=== PATIENT | male | born 1955 | race Caucasian/White ===

== ENCOUNTER 2019-07-29 07:52 | Inpatient (IN) | payer OTHER ==
[~2019-07-29 07:52] MED LIST: Buffered Lidocaine 1% SYRIN* 1 ML/SYRINGE INTRADERM ONE; Famotidine IV* 10 MG/ML 2 ML (20 mg) IV ONE; Lactated Ringers 1000 ML Bag* 1,000 ML IV SCH
--- OUTSIDE RECORDS SUMMARY | 2019-07-29 07:56 | XMS REPORT | Continuity of Care Document ---
:1955 External Reference #:[id number] Author Name Bird Caba M.D. (transmitted by agent of provider Judy Greenfield) Address [address] [place] [address] Care Team Providers Name Role Phone Fouzia Anderson MD - Internal Care Team Information Agronomy Specialist Medicine Problems Active Problems Provider Date Calcific tendinitis of right shoulder Bird Caba M.D. Onset: 11/27/2018 Rotator cuff tear arthropathy Bird Caba M.D. Onset: 10/12/2018 Social History Type Date Description Comments Sex Unknown ETOH Use 12 beer a week Tobacco Use Start: Unknown Patient has never smoked Smoking Status Reviewed: 07/19/19 Patient has never smoked Exercise Type/Frequency Exercises regularly Allergies, Adverse Reactions, Alerts Description No Known Drug Allergies Medications Active Medications SIG Qnty Indications Ordering Provider Date Ibuprofen 2 tabs by mouth Unknown 200mg Tablets every 8 hours take with food Vitamin B-12 1 by mouth Unknown 1000mcg Tablets every day Vitamin E Complex Unknown 400Unit Capsules Aspir-Low 1 by mouth Unknown 81mg Tablets DR every day Vitamin C 1 by mouth Unknown 500mg Tablets every day Glyburide/Metformin 1 tab by mouth Unknown Hydrochloride twice a day 2.5-500mg Tablets Losartan Potassium 1 by mouth Unknown 50mg every day Tablets Simvastatin 1 by mouth Unknown 20mg Tablets every day Immunizations Description No Information Available Vital Signs Date Vital Result Comment 07/19/2019 9:26am Height 71 inches 5'11" Weight 192.00 lb Heart Rate 63 /min BP Systolic Sitting 126 mmHg BP Diastolic Sitting 78 mmHg Body Temperature 97.5 F BMI (Body Mass Index) 26.8 kg/m2 05/21/2019 11:09am Height 71 inches 5'11" Weight 187.25 lb Heart Rate 69 /min BP Systolic Sitting 126 mmHg BP Diastolic Sitting 78 mmHg Body Temperature 98.3 F BMI (Body Mass Index) 26.1 kg/m2 Results Description No Information Available Procedures Description No Information Available Medical Devices Description No Information Available Encounters Type Date Location Provider Dx Diagnosis Office Visit 05/21/2019 [facility] Elvi [id number] Post- traumatic 11:00a at [place] osteoarthritis, left shoulder Assessments Date Code Description Provider 07/19/2019 M19.112 Post-traumatic osteoarthritis, left shoulder Bird Caba M.D. 05/21/2019 M19.112 Post-traumatic osteoarthritis, left shoulder Bird Caba M.D. Plan of Treatment Future Appointment(s):08/13/2019 11:15 am - Bird Caba M.D. at [facility]07/29/2019 9:00 am - JOANNA Machuca at [facility] at [facility]2007/29/2019 9:00 am - Bird Caba M.D. at [facility] at [facility]/19/2019 - Bird Caba M.D.M19.112 Post-traumatic osteoarthritis, left shoulderFollow up:4 weeks after surgery 2 weeks if no visiting nurse service Functional Status Description No Information Available Mental Status Description No Information Available Referrals Description No Information Available
[2019-07-29] MEDS ORDERED: Buffered Lidocaine 1% SYRIN* 1 ML/SYRINGE INTRADERM ONE (08:15)
[2019-07-29] MEDS ORDERED: ceFAZolin 2 GM PREMIX in ORs 2 GM/50 ML BAG ONE (08:15)
[2019-07-29] MEDS ORDERED: Famotidine IV* 10 MG/ML 2 ML (20 mg) ONE (08:15)
[2019-07-29] MEDS ORDERED: Midazolam* 1 MG/ML 5 ML VIAL (5 MG) ONE (09:18)
[2019-07-29] MEDS ORDERED: Lidocaine 2% PF * 5 ML VIAL ONE (09:31)
[2019-07-29] MEDS ORDERED: Succinylcholine* 20 MG/ML 10 ML VIAL ONE (09:31)
[2019-07-29] MEDS ORDERED: fentaNYL* 50 MCG/ML 2 ML VIAL (100 MCG VIAL) ONE (09:31)
[2019-07-29] MEDS ORDERED: Propofol* 10 MG/ML 20 ML BTL ONE (09:31)
[2019-07-29] MEDS ORDERED: Tranexamic Acid 1,000 MG in NS 0.9% 50 ML IV STA (09:59)
[2019-07-29] MEDS ORDERED: Lidocaine 1% INJ* 10 MG/ML 30 ML SDV ONE (10:23)
[2019-07-29] MEDS ORDERED: ROPIVACAINE 5 MG/ML 30 ML BTL (0.5%) ONE (10:25)
[2019-07-29] MEDS ORDERED: Bupivacaine 0.25% EPI 200,000* 30 ML SDV ONE (10:36)
[2019-07-29] MEDS ORDERED: KETAMINE HCL* 50 MG/ML 10 ML VIAL ONE (11:13)
[2019-07-29] MEDS ORDERED: Acetaminophen TAB* 325 MG PO PRN (11:53)
[2019-07-29] MEDS ORDERED: DiMENhydriNATE IV* 50 MG/ML VIAL IV PUSH PRN (11:53)
[2019-07-29] MEDS ORDERED: HYDROmorphone INJ1* 1 MG/ML SYRINGE IV PRN (11:53)
[2019-07-29] MEDS ORDERED: Naloxone* 0.4 MG/ML 1 ML VIAL IV PRN (11:53)
[2019-07-29] MEDS ORDERED: Dexamethasone IV* 4 MG/ML 1 ML (4 MG) ONE (12:42)
[2019-07-29] MEDS ORDERED: Ketorolac INJ* 30 MG/ML 1 ML VIAL ONE (12:42)
[2019-07-29] MEDS ORDERED: Ondansetron INJ* 2 MG/ML VIAL ONE (12:42)
[2019-07-29] MEDS ORDERED: Ondansetron INJ* 2 MG/ML VIAL IV PRN (13:16)
[2019-07-29] MEDS ORDERED: Ketorolac INJ* 30 MG/ML 1 ML VIAL IV PRN (13:16)
[2019-07-29] MEDS ORDERED: diPHENhydraMINE IV* 50 MG/ML 1 ml VIAL (BENADRYL) IV PRN (13:16)
[2019-07-29] MEDS ORDERED: Cyclobenzaprine TAB* 10 MG PO PRN (13:16)
[2019-07-29] MEDS ORDERED: Ondansetron ODT TAB* 4 MG PO PRN (13:16)
[2019-07-29] MEDS ORDERED: diPHENhydraMINE PO* 25 MG PO PRN (13:16)
[2019-07-29] MEDS ORDERED: oxyCODONE TAB* 5 MG TAB PO PRN (13:16)
[2019-07-29] MEDS ORDERED: Magnesium Hydroxide LIQ* 30 ML UDC PO PRN (13:16)
[2019-07-29] MEDS ORDERED: Morphine INJ* 2 MG/ML 1 ML SYRINGE (TWO MG - NEW SYRINGE VERSION) IV PRN (13:16)
[2019-07-29] MEDS ORDERED: Dextrose 50% VIAL 50 ml IV PUSH PRN (13:26)
[2019-07-29] MEDS ORDERED: D5W 1/2 NS 1000 ML BAG* 1,000 ML IV SCH (14:00)
[2019-07-29] MEDS: traMADol TAB* 50 MG PO PRN (16:24)
[2019-07-29] MEDS: Insulin LISPRO* 1 UNITS UNIT SUBCUT SCH ×2 (17:24→21:24)
--- NOTE | 2019-07-29 17:51 | CONS ---
CONSULTATION REPORT: DATE OF CONSULT: 07/29/19 REQUESTING PROVIDER: Dr. Caba. REASON FOR CONSULT: General co-medical management. HISTORY OF PRESENT ILLNESS: This is a 64-year-old male with a past medical history significant for h ypertension, hyperlipidemia, and diabetes type 2, who was admitted to the hospital on 07/29/19 for an elective left total shoulder replacement after failing conservative outpatient management. The hosp italists were asked to consult for management of diabetes and hypertension. The patient states that his blood pressure is generally around 140 systolically at home, which he takes losartan for. He chec ks his blood sugar twice a day, states that he normally runs between 140s and 160s. PAST MEDICAL HISTORY: Hypertension, hyperlipidemia, diabetes type 2, osteoarthritis. PAST SURGICAL HISTORY: Bilateral cataract repair. MEDICATIONS: 1. Vitamin E 400 units p.o. q.a.m. 2. Simvastatin 20 mg p.o. at bedtime. 3. Losartan 50 mg p.o. q.a.m. 4. Glyburide/metformin 2.5/500 mg p.o. b.i.d. 5. Cyanocobalamin 1000 mcg p.o. q.a.m. 6. Cholecalciferol 2000 units p.o. q.a.m. 7. Aspirin 81 mg p.o. q.a.m. 8. Ascorbic acid 500 mg p.o. q.a.m. 9. Acetaminophen 1000 mg p.o. t.i.d. p.r.n. ALLERGIES: No known drug allergies. FAMILY HISTORY: Mother is due to breast cancer. Father , heart disease, diabetes, hypertension. SOCIAL HISTORY: He is a nonsmoker. Drinks about 2 to 3 alcoholic beverages a week. No recreational substance use. Is retired, used to work for [employer]. Is and has 2 children. REVIEW OF SYSTEMS: An 11-point system review was performed, which was positive for the numbness to l eft fourth and fifth digits. Negative for fever, chills, chest pain, palpitations, shortness of anthony th, abdominal pain, nausea, vomiting, or issues moving his bowel or bladder. PHYSICAL EXAM: Vital Signs: 97.9 Fahrenheit, 59 pulse, 18 resps, 96% oxygen on room air, 142/79 blo od pressure. General: This is a well-developed gentleman seen sitting up in bed, in no acute distre ss. HEENT: Conjunctivae pink and moist. PERRLA. EOMs intact. Mucous membranes moist. Oropharynx is clear. Neck is supple. Cardiac: S1, S2 present. Heart rate regular. No murmurs, gallops, or r ubs appreciated. Respiratory: Lung sounds clear throughout bilaterally on room air. No accessory m uscle use noted. Abdomen is soft, nontender, nondistended with positive bowel sounds x4. Musculoske letal: Sling in place to the left upper extremity. Able to move all fingers with cap refill less th an 3 seconds. 2+ positive radial pulses. Skin: Dressing to the left shoulder is clean, dry, and in tact. No other rashes or open areas appreciated. Neurological: Decreased sensation to the left fou rth and fifth digits. No other focal deficits appreciated. Psych: Alert and oriented x3. Thought content organized. DIAGNOSTIC STUDIES/LAB DATA: Shoulder x-ray showed status post left shoulder replacement surgery. Pertinent lab data: None for this admission. ASSESSMENT AND PLAN: My impression is that this is a 64-year-old male with a past medical history si gnificant for hypertension, diabetes, and hyperlipidemia, who was admitted on 07/29/19 status post an elective left total shoulder replacement. 1. Left total shoulder replacement. PT and OT, pain management, and bowel management as per Ortho. To wear sling at all times. May periodically move wrist and elbow, though to minimize movement in t he shoulder. 2. Hypertension. The patient normally takes losartan at home; however, we will hold this for now. Blood pressure is around 140s to 150s. We will restart in the a.m. should blood pressures continue t o be elevated. 3. Hyperlipidemia. Continue simvastatin. 4. Diabetes type 2. The patient may continue glyburide. We will hold metformin. Fingersticks a.c. and h.s. with sliding scale lispro coverage. 5. DVT prophylaxis: Lovenox. 6. Code status is full code. 7. Disposition: Admit inpatient to short-stay surgical. Condition is fair. TIME SPENT: Time spent on the patient is about 50 minutes with half of that spent [id number]. Thank you for allowing us to participate in the care of this patient. We will follow during this adm ission. [id number]/[facility] #: [id number]
[2019-07-29] MEDS: ceFAZolin 1 GM ADVAN(*) 1 GM in NS 0.9% 50 ML* 50 ML IVPB SCH (19:24)
--- NOTE | 2019-07-29 20:29 | OP ---
DATE OF OPERATION: 07/29/19 - ROOM #348 DATE OF : 57 SURGEON: Bird Caba MD MOLDING FITTER: Michelle Banegas RPA ANESTHESIA: Regional and general. PRE-OP DIAGNOSIS: Osteoarthritis, left shoulder. POST-OP DIAGNOSIS: Osteoarthritis, left shoulder. OPERATIVE PROCEDURE: Left total shoulder arthroplasty. ESTIMATED BLOOD LOSS: 50 cc. COMPLICATIONS: None. HARDWARE: Tornier Simpliciti humerus #2 nucleus, 48 mm head, medium 35-degree cemented glenoid. INDICATIONS: Mr. Fay is a 64-year-old male who has a history of troubles with his left shoulder. He had sustained an injury years ago at work and when he presented to the office last year, was [id number] in the glenohumeral joint. He was interested in a shoulder replacement, but wanted to enjoy the summer and he did. He presented this fall and we talked about a left total shoulder arthroplasty. Risks of surgery such as infection, scar formation, stiffness, continued pain, instability, and loss of function as well as neurovascular injury were some of the risks discussed. He had been declared medically optimized and wished to proceed. DESCRIPTION OF PROCEDURE: The patient had a scalene block placed in the holding area and was brought back to the OR. General endotracheal anesthesia was established. He was then sat up in the beach chair position, but only with about 30 degrees of elevation of his back. He had been nicely padded on with the filter press tender head and he was brought over a little bit so that I could adduct the arm and have good access to the glenohumeral joint. Left shoulder was prepped and then draped. Instead of a usual incision, which I tend to make over the coracoid and then come downwards obliquely towards to the humeral shaft superiorly, I started about 2.5 cm more lateral than I usually did, as this was supposed to aid me in glenoid exposure. Incision was carried down through the skin and subcutaneous tissues. Small bleeders encountered were ligated using electrocautery. Deltoid was easily found and full-thickness skin flaps were raised on both sides. I was able to come more medially then to find the fat stripe, and with dissection down along the fat stripe, cephalic vein was found. Using blunt finger dissection, I was then able to come underneath the deltoid and deltoid retractor was then placed. This gave nice exposure to the anterior aspect of the glenohumeral joint. Short head of biceps and trapezius musculature was easily visible. I was able to do a little blunt dissection there, but with external rotation I easily saw his biceps tendon and could feel the inferior bone spurs along the humeral head. Coming just a little bit medial to his biceps, I thought I had started a nice peel of his subscapularis. Joint fluid was encountered shortly after I started to peel. Coming further downwards, I was able to peel rotator cuff off and he still had capsule present. Capsule was sharply incised right where I could directly see along the spur and also peel back. This gave nice exposure to the humeral head. Rongeur was then used to take down some of the spurs inferiorly along the inferior margin of the humeral head. Cutting guide was placed and adjusted and I believe I could see where his original anatomy, his original humeral head would be. Bone was marked and humeral head was then resected. It appeared a nice cut was obtained. He seemed to fit nicely for a 48, which corresponded well , as with preoperative templating he was templated to a 46. Sizer was placed and the 2 sat nicely with no overhang. Drill was then run and the lateral cortex engaged. Drill was then run over the guidewire and then #1 nucleus was impacted into place with the bone protector over the top. Humerus was then pushed posteriorly and Darrach was used to hook behind the backside of the glenoid and another Darrach was used anteriorly and nice exposure of the glenoid was obtained. The 35 medium seemed to sit nicely with that and drill was run right through the center. Reamer was then run over this and glenoid was just reamed a little bit. Great care was taken not to ream through anything as the system is designed to still have hard cortical bone behind it. Larger central hole was then drilled and the guidewire came out with that drill. Drill guide was then placed and seated and the 3 additional peg holes were then drilled. Glenoid was then copiously pulse lavaged and cement was being prepared while glenoid was brought onto the table. Once the cement was prepared, this was injected into the drill holes and a little bit placed onto the pegs of the glenoid. Glenoid was then impacted into place and it seemed to have a nice solid bite and also sat nicely. Once the cement had hardened, the shoulder was searched for additional pieces of cement and a few small pieces were found. Shoulder was again copiously pulse lavaged. Shoulder was brought forward and the baseplate was removed and he was then trialed with a 48. He seemed to have wonderful motion and stability, and I thought these parts would fit perfectly. Trial #1 nucleus was then removed. #2 nucleus was then impacted into place and 48 mm head was impacted onto that. He was reduced and had the same wonderful motion and stability. Shoulder was then copiously pulse lavaged. Subscap was repaired as I apparently had not done a full peel, but I had enough tissue so that I could easily pass stitches and nicely repair his subscap. Shoulder was again copiously pulse lavaged and deltoid was allowed to fall downwards and he had great coverage of the area. Subcutaneous tissues were reapproximated using 2-0 Vicryl. Skin was repaired using a running Monocryl. Sterile dressing, Cryo/Cuff, and a sling were all applied in the OR. The patient was then extubated in the OR and was stable on transfer to the recovery room. [id number]/[facility] #: [id number] BOB
[2019-07-29] MEDS ORDERED: Atorvastatin* 10 MG TAB PO SCH (21:00)
[2019-07-29] MEDS: Acetaminophen TAB* 325 MG PO SCH (21:23)
[2019-07-29] MEDS: Magnesium Hydroxide LIQ* 30 ML UDC PO SCH (21:23)
[2019-07-29] MEDS: Docusate CAP* 100 MG PO SCH (21:23)
[2019-07-30] MEDS: traMADol TAB* 50 MG PO PRN ×2 (01:49→09:05)
[2019-07-30] MEDS: oxyCODONE TAB* 5 MG TAB PO PRN ×2 (03:14→07:34)
[2019-07-30] MEDS: ceFAZolin 1 GM ADVAN(*) 1 GM in NS 0.9% 50 ML* 50 ML IVPB SCH ×2 (03:15→10:39)
[2019-07-30 05:31] LABS: Hematocrit 37 % (42-52); Hemoglobin 12.9 g/dL (14.0-18.0); Mean Platelet Volume 7.3 fL (7.4-10.4); Platelet Count 238 10^3/uL (150-450)
[2019-07-30] MEDS: Acetaminophen TAB* 325 MG PO SCH (05:45)
[2019-07-30 05:58] LABS: BUN/Creatinine Ratio 15.7 (8-20); Calcium 8.9 mg/dL (8.6-10.3); EGFR African American 89.3 (>60); EGFR Non-African American 73.8 (>60); Potassium 3.9 mmol/L (3.5-5.0)
[2019-07-30 07:36] VITALS: BP 128/75
[2019-07-30] MEDS ORDERED: Vitamin THERAPEUTIC TAB PO SCH (09:00)
[2019-07-30] MEDS ORDERED: Ascorbic Acid TAB* 500 MG PO SCH (09:00)
[2019-07-30] MEDS ORDERED: Cyanocobalamin TAB* 500 MCG PO SCH (09:00)
[2019-07-30] MEDS ORDERED: Aspirin EC TAB* 81 MG TAB.EC PO SCH (09:00)
[2019-07-30] MEDS ORDERED: Vitamin E CAP* 400 UNIT PO SCH (09:00)
[2019-07-30] MEDS ORDERED: Cholecalciferol TAB* 1000 UNITS PO SCH (09:00)
[2019-07-30] MEDS: Docusate CAP* 100 MG PO SCH (09:04)
[2019-07-30] MEDS: Magnesium Hydroxide LIQ* 30 ML UDC PO SCH (09:05)
[2019-07-30] MEDS: Insulin LISPRO* 1 UNITS UNIT SUBCUT SCH (09:06)
--- NOTE | 2019-07-30 09:27 | DS ---
Orthopedic Discharge Summary - Discharge Summary Date of Admission: 07/29/19 Date of Discharge: 07/30/19 Date of Surgery: 07/29/19 Attending Orthopedic Provider: Dr Caba Pre-operative Diagnosis: Left shoulder osteoarthritis Operative Procedure: Left total shoulder replacement Disposition of Patient: home Condition of Patient: stable, no home PT and no nursing History: JULIO PIERCE is a 64 year old M with years of increasingly severe left shoulder pain. Patient has failed conservative management and has elected to undergo a left total shoulder replacement Hospital Course: JULIO was admitted to [facility] on 07/29/19. Patient underwent a left total shoulder replacement without complication followed by a brief recovery in PACU and transfer to the Short Stay Surgical Unit in stable condition. Our hospitalist service, physical therapy and occupational therapy also participated in this patients care. Post-op day 1: Patient was seen at bedside. He felt well and strongly desires DC home. Denies CP, SOB, dizziness, nausea. LUE in a sling, able to f/e at wrist and MCPs. Sensation intact to light touch distally, radial pulse 2+, capillary refill less than two seconds distally. Patient was alert and in no acute distress. Dressing was clean, dry and intact. He was deemed to be medically and orthopedically stable. Home Medications Medication Instructions Recorded Confirmed Type Acetaminophen [Acetaminophen Extra 2 tab PO TID PRN 07/19/19 07/29/19 History Strength] Ascorbic Acid TAB* [Vitamin C 500 mg PO QAM 07/19/19 07/29/19 History TAB*] Aspirin EC TAB* [Ecotrin EC Low 81 mg PO QAM 07/19/19 07/29/19 History Dose 81 MG*] Cholecalciferol (Vitamin D3) 2,000 unit PO QAM 07/19/19 07/29/19 History Vitamin D3 Cyanocobalamin TAB* [Vitamin B12 1,000 mg PO QAM 07/19/19 07/29/19 History TAB*] Glyburid/Metformin 2.5/500(NF) 1 tab PO 0800,1700 07/19/19 07/29/19 History [Glucovance (NF)] Losartan TAB* [Cozaar TAB*] 50 mg PO QAM 07/19/19 07/29/19 History Simvastatin 20 mg PO BEDTIME 07/19/19 07/29/19 History Vitamin E CAP* 400 unit PO QAM 07/19/19 07/29/19 History Acetaminophen TAB* [Tylenol TAB*] 975 mg PO Q8HR tab 07/30/19 Rx Docusate CAP* [Colace Cap*] 100 mg PO BID PRN #90 cap 07/30/19 Rx oxyCODONE TAB* [Roxycodone TAB 5 5 mg PO Q4H PRN #40 tab MDD 8 07/30/19 Rx mg*] oxyCODONE TAB* [Roxycodone TAB 5 10 mg PO Q4H PRN #0 tab 07/30/19 Rx mg*] Discharge Instructions following Orthopedic Surgery: Physical Therapy: Non-weight bearing to left arm, able to remove from sling for showering POD #3 ( 08/01/19) , pendulum exercises as shown by PT, passive range of motion to 90 flexion, 90 abduction, and 30 external rotation passively as shown. No Active movement of shoulder. Wound Care: OK to shower 08/01/19, no bathing/ swimming/ submerging wound. Use gentle soap, pat dry. Cover with gauze, paper tape. There are no sutures or monico that need to be removed. Allow steri strips to stay in place until they fall off on their own. Diet: Regular diabetic diet, increase fluids and fiber to prevent constipation. Continue to use stool softeners, call office if no bowel motion within 48 hours. - Continue physical therapy and occupational therapy exercises as shown. Pain control: Oxycodone 5 mg tabs. 1 tab for moderate pain and 2 tabs for severe pain every 4 hours as needed. Hold for sedation and wean off as soon as pain allows. - Antibiotics required prior to any dental work Medications: No changes to home medications, post op medication prescribed include oxycodone for pain and colace for constipation Concerns: Call Orthopedic office for increased drainage, redness, increased pain , or fever. Go to ER with shortness of breath or chest pain. Please call our office to make an appointment as well as with any questions or concerns ([phone]) Follow up with Dr Caba in 4 weeks, sooner with concerns. RX at [facility] pharmacy
[2019-07-30] MEDS ORDERED: Enoxaparin(*) 40 MG/0.4 ML SYR SUBCUT SCH (12:00)
== END 2019-07-30 11:40 | disposition home or self-care (01) | DRG 322 ==
LOC: AA 07:52 → SSU 13:16
PROVIDERS: ADMIT Orthopaedic Surgery; ATTEND Orthopaedic Surgery
PROC: 0RRK0JZ Replacement of Left Shoulder Joint with Synthetic Substitute, Open Approach (ICD-10-PCS; principal; 2019-07-29 10:00)
DX: M19.112 Post-traumatic osteoarthritis, left shoulder (principal); I10 Essential (primary) hypertension; E78.2 Mixed hyperlipidemia; H35.30 Unspecified macular degeneration; E11.9 Type 2 diabetes mellitus without complications; X58.XXXS Exposure to other specified factors, sequela; Z79.82 Long term (current) use of aspirin; Z79.84 Long term (current) use of oral hypoglycemic drugs; T14.90XS Injury, unspecified, sequela; Z98.42 Cataract extraction status, left eye; Z98.41 Cataract extraction status, right eye
CPT/HCPCS: 36415; 80048; 85014; 85018; 85049; 88304; 88311; A9270-GY; C1776; J0330; J0690; J1100; J1885; J2250; J2405; J2704; J2795; J3010